=== PATIENT | female | born 1945 | race Caucasian/White ===

== ENCOUNTER → 2016-04-08 | Outpatient (REF) | payer MEDICARE, OTHER ==
[2016-04-10 00:06] LABS: Lyme Disease IgG Ab 18 kDa Ban Absent (.); Lyme Disease IgG Ab 23 kDa Ban Absent (.); Lyme Disease IgG Ab 28 kDa Ban Absent (.); Lyme Disease IgG Ab 30 kDa Ban Absent (.); Lyme Disease IgG Ab 39 kDa Ban Absent (.); Lyme Disease IgG Ab 41 kDa Ban Present (.); Lyme Disease IgG Ab 45 kDa Ban Present (.); Lyme Disease IgG Ab 58 kDa Ban Absent (.); Lyme Disease IgG Ab 66 kDa Ban Absent (.); Lyme Disease IgG Ab 93 kDa Ban Absent (.); Lyme Disease IgG West Blot Int Negative (.); Lyme Disease IgG/IgM Antibodie <0.91 ISR (0.00-0.90); Lyme Disease IgM Ab 23 kDa Ban Absent (.); Lyme Disease IgM Ab 39 kDa Ban Absent (.); Lyme Disease IgM Ab 41 kDa Ban Absent (.); Lyme Disease IgM Ab Quantitati 1.47 index (0.00-0.79); Lyme Disease IgM West Blot Int Negative (.)
== END ==
LOC: M LAB REF 12:27
PROVIDERS: ATTEND Nurse Practitioner Adult Health
DX: S80.869A Insect bite (nonvenomous), unspecified lower leg, initial encounter (principal); X58.XXXA Exposure to other specified factors, initial encounter; Y92.89 Other specified places as the place of occurrence of the external cause; Y93.89 Activity, other specified; Y99.8 Other external cause status; Z01.89 Encounter for other specified special examinations

== ENCOUNTER 2016-04-11 12:17 | Emergency (ER) | payer MEDICARE, BC ==
[2016-04-11] MEDS ORDERED: diazePAM 2 MG TAB As Ordered ONE (13:37)
[2016-04-11] MEDS ORDERED: NORCO, ANEXSIA 5/325MG TABLET (HYDROcodone/ACETAMINOPHEN) As Ordered ONE (13:37)
--- NOTE | 2016-04-11 14:05 | REP ---
Clinical: Trauma. Fall. Technique: AP and lateral views of the right humerus. Findings: There is evidence for anteroinferior glenohumeral joint dislocation. The humerus is otherwise intact without acute fracture. Impression: Anteroinferior glenohumeral joint dislocation. No acute fracture. Signed by Yung Gutiérrez MD 04/11/2016 01:56 P
--- NOTE | 2016-04-11 14:06 | REP ---
Clinical: Trauma. Fall. Technique: Internal rotation, external rotation, and Y view of the right shoulder. Findings: Acute anteroinferior glenohumeral joint dislocation is appreciated without evidence for fracture. Age related osteopenia and degenerative changes include spurring along the inferior margin of the acromioclavicular joint and blunting to the glenoid rim. Impression: Acute anteroinferior glenohumeral joint dislocation. Degenerative changes with inferior osteophyte at the acromioclavicular joint. Signed by Yung Gutiérrez MD 04/11/2016 01:58 P
--- NOTE | 2016-04-11 14:08 | REP ---
Clinical: Pain. Technique: AP, lateral, flexion/extension, open-mouth, and bilateral oblique views. Findings: Advanced degenerative disc osteophyte complexes at the C5-6 level and to a lesser extent the a C4-5 and C6-7 levels including osteophytosis, endplate sclerosis, disc space narrowing and hypertrophic facet changes. No acute fracture / compression injury or subluxation. Spinous processes are intact. Prevertebral soft tissues are normal. Impression: Moderate to advanced multilevel degenerative changes. Signed by Yung Gutiérrez MD 04/11/2016 02:00 P
[2016-04-11] MEDS ORDERED: KETAMINE HCL 200 MG/20 ML VIAL As Ordered ONE (14:25)
[2016-04-11] MEDS ORDERED: PROPOFOL 200 MG/20 ML VIAL As Ordered ONE (14:25)
--- NOTE | 2016-04-11 15:28 | REP ---
Clinical: Status post reduction. Technique: Single portable neutral view of the right shoulder. Findings: Satisfactory reduction to the glenohumeral joint is appreciated. A Shiley osteopenia and degenerative changes appreciated. No obvious acute fracture identified. Impression: Satisfactory reduction suggested. Underlying degenerative changes noted. Signed by Yung Gutiérrez MD 04/11/2016 03:20 P
--- NOTE | 2016-04-11 17:41 | EDDOCDS ---
Physician Documentation [facility], [place] Name: Jenny Mora Age: 70 yrs Sex: Female : 1945 Arrival Date: 04/11/2016 Time: 12:17 Bed 4 Private MD: Radha Draper Disposition: 04/11/16 16:35 Discharged to Home/Self Care. Impression: Other dislocation of right shoulder joint, Elevated blood-pressure reading, without diagnosis of hypertension. - Condition is Stable. - Discharge Instructions: Shoulder Dislocation, Sling Use After Injury or Surgery, [id number], Hypertension, How to Take Your Blood Pressure, [id number], Cryotherapy. - Prescriptions for [place] 5- 325 mg Oral Tablet - take 1 tablet by ORAL route every 6 hours As needed MDD: 4 tabs; 6 tablet. - Medication Reconciliation, Local Pharmacy Hours form. - Follow up: [facility]; When: 1 week; Reason: Recheck today's complaints, Continuance of care. Follow up: Radha Draper; When: Call to arrange an appointment; Reason: Recheck today's complaints. - Problem is new. - Symptoms are resolved. Historical: - Allergies: PENICILLINS; - Home Meds: 1. Systane 0.4-0.3 % ophthalmic drop as needed 2. Vitamin D Oral Unknown weekly - PMHx: Glaucoma; - PSHx: Hysteroscopy; - Social history: Smoking status: Patient states was never smoker of tobacco. No barriers to communication noted, The patient speaks fluent Latvian. - Family history: Not pertinent, No immediate family members are acutely ill. - : The pt / caregiver states he / she is not on anticoagulants. Home medication list is obtained from the patient. - Exposure Risk Screening:: None identified. Vital Signs: 04/11 12:19 BP 212 / 111; Pulse 69; Resp 18 S; Temp 97.1; Pulse Ox 100% on R/A; Weight 70.31 kg / dd6 155.01 lbs (R); Height 5 ft. 5 in. (165.10 cm) (R); 14:24 BP 218 / 95 (auto/); hs1 14:24 Pulse 76 MON; Pulse Ox 98% ; hs1 14:25 BP 205 / 94 (auto/); hs1 14:26 Pulse 78 MON; Pulse Ox 96% ; hs1 14:40 BP 186 / 70 (auto/); hs1 14:40 Pulse 70 MON; Pulse Ox 98% ; hs1 14:46 BP 202 / 90 (auto/); hs1 14:46 Pulse 78 MON; Pulse Ox 98% ; hs1 14:51 BP 228 / 106 (auto/); hs1 14:51 Pulse 82 MON; Pulse Ox 100% ; hs1 14:55 BP 222 / 95 (auto/); hs1 14:55 Pulse 98 MON; Pulse Ox 100% ; hs1 15:10 BP 187 / 84 (auto/); hs1 15:10 Pulse 86 MON; Pulse Ox 99% ; hs1 15:25 BP 181 / 83 (auto/); hs1 15:25 Pulse 82 MON; Pulse Ox 97% ; hs1 15:54 Pulse 76 MON; Pulse Ox 95% ; hs1 15:55 BP 170 / 95 (auto/); hs1 16:09 Pulse 78 MON; Pulse Ox 96% ; hs1 16:10 BP 161 / 75 (auto/); hs1 17:40 BP 155 / 66; Pulse 76; Resp 18; Temp 98.2; Pulse Ox 95% ; Pain 0/10; hs1 12:19 Body Mass Index 25.79 (70.31 kg, 165.10 cm) dd6 MDM: 13:27 Diazepam 2 mg PO once ordered. le 13:27 HYDROcodone-acetaminophen 5 mg-325 mg 1 tabs PO once ordered. le 13:28 Spine, Cervical Ordered. EDMS 13:28 Shoulder, Complete Ordered. EDMS 13:28 Humerus Ordered. EDMS 14:11 Ketamine (1mg/kg - Peds initial dose) 70 mg IVP once ordered. le 14:11 Propofol (PF)(Moderate Sedation, 0.5mg/kg) 35 mg IVP Per protocol; give every 1-2 le minutes until desired level of sedation ordered. 14:11 Call Respiratory ordered. le 14:11 Airway Cart to bedside ordered. le 14:[address]ler Engineer and SaO2 with q 5 minute VS during procedure ordered. le 14:11 Initiate continuous wave form capnography monitoring ordered. le 14:11 Oxygen at 4L/Min NC or Home dosage ordered. le 14:45 Call Respiratory complete. deg 14:53 Sling ordered. le 14:54 Shoulder (1 View) Ordered. EDMS 15:14 Propofol (PF)(Moderate Sedation, 0.5mg/kg) 35 mg IVP Per protocol; give every 1-2 le minutes until desired level of sedation ordered. 16:23 Financial registration complete. zo 16:24 Fluid Challenge ordered. le 16:24 Ambulate Patient to Assess Patient Safety ordered. le 16:24 [facility] Payment Agreement was scanned into [facility] and attached to record. zo Administered Medications: 13:38 Drug: Diazepam 2 mg [diazepam 2 mg tablet (1 tabs)] Route: PO; hs1 13:38 Drug: HYDROcodone-acetaminophen 1 tabs [hydrocodone 5 mg-acetaminophen 325 mg tablet (1 hs1 tabs)] Route: PO; 14:47 Drug: Ketamine (1mg/kg - Peds initial dose) 70 mg [ketamine 10 mg/mL injection solution hs1 (7 mL)] Route: IVP; Site: left hand; 15:14 Not Given (Ketamine effective alonee): Propofol (PF)(Moderate Sedation, 0.5mg/kg) 35 mg le IVP Per protocol; give every 1-2 minutes until desired level of sedation Signatures: Dispatcher [employer] EDMS Madeline Benitez, Product Promoter Sales Person Unit deg Vitor, Yvrose zo Leslie Farrar, ORDER SCHEDULE CLERK ORDER SCHEDULE CLERK Daniela Christina RN RN hs1 Christie Hernandes RN RN ms18 The chart was reviewed and I authenticate all verbal orders and agree with the evaluation and treatment provided.Attachments: 16:24 [facility] Payment Agreement zo MTDD
--- NOTE | 2016-04-11 17:41 | EDDOCDS ---
Nurse's Notes [facility] Name: Jenny Mora Age: 70 yrs Sex: Female : 1945 Arrival Date: 04/11/2016 Time: 12:17 Bed 4 Private MD: Radha Draper Diagnosis: Other dislocation of right shoulder joint;Elevated blood-pressure reading, without diagnosis of hypertension Presentation: 04/11 12:21 Presenting complaint: Patient states: that while she was hiking with her dog, she fell ms18 and injured her R arm. Adult Sepsis Screening: The patient does not have new or worsening altered mentation. Patient's respiratory rate is less than 22. Systolic blood pressure is greater than 100. Patient has a qSOFA score of 0- Negative Sepsis Screen. Suicide/Homicide risk assessment- the patient denies having any suicidal and/or homicidal ideations and does not present with any other emotional, behavioral or mental health complaints. Status: Patient is not a service car operator or dependent. Transition of care: patient was not received from another setting of care. 12:21 Acuity: LELA Level 4 ms18 12:21 Method Of Arrival: Walkin/Carried/Asstd ms18 Triage Assessment: 12:25 General: Appears in no apparent distress, comfortable, Behavior is appropriate for age, ms18 cooperative. Pain: Location: right arm and neck Pain currently is 5 out of 10 on a pain scale. Neurological: Level of Consciousness is awake, alert, obeys commands, Oriented to person, place, time. Respiratory: No deficits noted. Derm: Skin is pink, warm & dry. Musculoskeletal: cervical spine is non-tender. Range of motion limited in right shoulder No deformity noted. Historical: - Allergies: PENICILLINS; - Home Meds: 1. Systane 0.4-0.3 % ophthalmic drop as needed 2. Vitamin D Oral Unknown weekly - PMHx: Glaucoma; - PSHx: Hysteroscopy; - Social history: Smoking status: Patient states was never smoker of tobacco. No barriers to communication noted, The patient speaks fluent Japanese. - Family history: Not pertinent, No immediate family members are acutely ill. - : The pt / caregiver states he / she is not on anticoagulants. Home medication list is obtained from the patient. - Exposure Risk Screening:: None identified. Screenin:44 Screening information is obtained from the patient. Fall risk: No risks identified. hs1 Assistance ADL's: requires no assistance with activities of daily living. Abuse/DV Screen: The patient / caregiver reports he/she is: not in a situation that causes fear, pain or injury. Nutritional screening: No deficits noted. Advance Directives: There is no active DNR order. home support is adequate. Assessment: 13:38 General: Appears uncomfortable, Behavior is appropriate for age, cooperative. Pain: hs1 Location: anterior aspect of right shoulder Pain currently is 9 out of 10 on a pain scale. Neurological: No deficits noted. Respiratory: No deficits noted. GI: No deficits noted. Musculoskeletal: Range of motion limited in right shoulder Reports numbness in right arm pain in anterior aspect of right shoulder radiation to right elbow. 14:25 General: Pt aware of having a dislocated shoulder and that she need to have PHOTONICS ENGINEERING TECHNOLOGIST put back hs1 in. See moderated sedation chart for further. . 15:00 General: Patient talking and upright with Right shoulder in sling at present. Xray hs1 obtained and confirmation of joint in place made by PHOTONICS ENGINEERING TECHNOLOGIST. brought back in to patient and he was explained details of the moderate sedation and that patients respiratory system needed assistance due to her tolerance of the medication. Patient alert and oriented and obeys all commands. . 16:25 General: Appears in no apparent distress, comfortable, Pt resting has used commode hs1 multiple times and is tolerating drinking. Patient ambulates without assistance. No needs noted. SO continues at bedside. . 17:36 General: Appears in no apparent distress, comfortable, Behavior is appropriate for age, hs1 cooperative. Pain: Denies pain. Neurological: Oriented to person, place, time, Coremaker Machine are equal bilaterally. Cardiovascular: No deficits noted. Respiratory: No deficits noted. GI: No deficits noted. Derm: Skin is pink, warm & dry. normal. Vital Signs: 12:19 BP 212 / 111; Pulse 69; Resp 18 S; Temp 97.1; Pulse Ox 100% on R/A; Weight 70.31 kg dd6 (R); Height 5 ft. 5 in. (165.10 cm) (R); 14:24 BP 218 / 95 (auto/); hs1 14:24 Pulse 76 MON; Pulse Ox 98% ; hs1 14:25 BP 205 / 94 (auto/); hs1 14:26 Pulse 78 MON; Pulse Ox 96% ; hs1 14:40 BP 186 / 70 (auto/); hs1 14:40 Pulse 70 MON; Pulse Ox 98% ; hs1 14:46 BP 202 / 90 (auto/); hs1 14:46 Pulse 78 MON; Pulse Ox 98% ; hs1 14:51 BP 228 / 106 (auto/); hs1 14:51 Pulse 82 MON; Pulse Ox 100% ; hs1 14:55 BP 222 / 95 (auto/); hs1 14:55 Pulse 98 MON; Pulse Ox 100% ; hs1 15:10 BP 187 / 84 (auto/); hs1 15:10 Pulse 86 MON; Pulse Ox 99% ; hs1 15:25 BP 181 / 83 (auto/); hs1 15:25 Pulse 82 MON; Pulse Ox 97% ; hs1 15:54 Pulse 76 MON; Pulse Ox 95% ; hs1 15:55 BP 170 / 95 (auto/); hs1 16:09 Pulse 78 MON; Pulse Ox 96% ; hs1 16:10 BP 161 / 75 (auto/); hs1 17:40 BP 155 / 66; Pulse 76; Resp 18; Temp 98.2; Pulse Ox 95% ; Pain 0/10; hs1 12:19 Body Mass Index 25.79 (70.31 kg, 165.10 cm) dd6 Vitals: 12:19 Log In Time: April 11, 2016 at 12:17. dd6 ED Course: 12:18 Patient visited by Fran Condon PCA. dd6 12:18 Patient moved to Waiting dd6 12:19 Radha Draper is Private Physician. dd6 12:20 Patient moved to Pre RCE dd6 12:22 Triage Initiated ms18 12:35 [facility]. le 12:35 Patient moved to 13 mlb1 12:47 Patient visited by Leslie Farrar FNP. le 12:47 Patient visited by Leslie Farrar FNP. le 13:28 Patient visited by Daniela Gonzalez, ADALID. hs1 14:07 Daniela Gonzalez, ADALID is Primary Nurse. dy 14:07 Patient moved to 4 dy 14:23 Humerus Returned. EDMS 14:23 Shoulder, Complete Returned. EDMS 14:23 Spine, Cervical Returned. EDMS 14:40 Inserted saline lock: 20 gauge in left hand The patient tolerated the procedure well. hs1 14:45 Patient visited by Daniela Gonzalez RN. hs1 14:45 Assist provider with reduction of right shoulder using manipulation, Set up for hs1 procedure. Performed by Leslie Farrar RESTAURANT AREA DIRECTOR Immobilized with sling, Patient tolerated well. 15:43 Patient visited by Daniela Gonzalez RN. hs1 15:45 The patient / caregiver is instructed regarding the plan of care and ED course. hs1 15:53 Shoulder (1 View) Returned. EDMS 16:14 Patient visited by Daniela Gonzalez RN. hs1 16:24 [facility] Payment Agreement was scanned into [employer] and attached to record. zo 16:35 [facility] is Referral Physician. neelima 16:36 Radha Draper is Referral Physician. neelima Anne Sedation: 14:45 Pre-procedure: Name of procedure: Right Shoulder reduction Monitoring RN: Daniela hs1 Lisa CORDOBA Other Staff: Kika Farrar NP, Orin Lloyd RN, Stephanie Mcghee INTERVENTION NURSE Reviewed instructions and expectations with patient, patient's , Has had drug/anesthesia reactions to patient states na ve Reviewed patient's current meds list. monitoring tech on. Cardiac rhythm with PVC's Pulse ox on. Oxygen via nasal cannula \T\ 2L/min 14:45 Q 5 minute assessment Level of Consciousness: Alert / Oriented 14:45 See Trend VS 14:50 Q 5 minute assessment Level of Consciousness: Drowsy hs1 14:50 Intra-procedure: Procedure began at 14:52 Patient response: remains sedated, resps even/unlabored, IV patent. 14:55 Q 5 minute assessment Level of Consciousness: Respirations needing assistance. Pt hs1 bagged with 100% O2 by MARIA ANTONIA Mcghee at this time under direction of Kika Miller NP 14:55 Post-procedure: Procedure ended at 14:55 the total procedure time was less than 30 minutes. Administered Medications: 13:38 Drug: Diazepam 2 mg [diazepam 2 mg tablet (1 tabs)] Route: PO; hs1 13:38 Drug: HYDROcodone-acetaminophen 1 tabs [hydrocodone 5 mg-acetaminophen 325 mg tablet (1 hs1 tabs)] Route: PO; 14:47 Drug: Ketamine (1mg/kg - Peds initial dose) 70 mg [ketamine 10 mg/mL injection solution hs1 (7 mL)] Route: IVP; Site: left hand; 15:14 Not Given (Ketamine effective alonee): Propofol (PF)(Moderate Sedation, 0.5mg/kg) 35 mg le IVP Per protocol; give every 1-2 minutes until desired level of sedation RT: 14:55 Assist ventilation with Ambu bag. jh6 14:55 Respiratory: Airway is patent Respiratory effort is apnea. jh6 15:02 Respiratory: Airway is patent Respiratory effort is even, unlabored, Respiratory jh6 pattern is regular symmetrical. 15:05 Respiratory: Breath sounds are clear bilaterally. in right upper lobe, left upper lobe, jh6 right middle lobe, left lower lobe and right lower lobe. Order Results: Radiology Order: Spine, Cervical Test: Spine, Cervical REASON FOR EXAMINATION: PAIN; Clinical: Pain.; ; Technique: AP, lateral, flexion/extension, open-mouth, and bilateral oblique; views.; ; Findings:; Advanced degenerative disc osteophyte complexes at the C5-6 level and to a lesser; extent the a C4-5 and C6-7 levels including osteophytosis, endplate sclerosis,; disc space narrowing and hypertrophic facet changes. No acute fracture /; compression injury or subluxation. Spinous processes are intact. Prevertebral; soft tissues are normal.; ; Impression:; Moderate to advanced multilevel degenerative changes.; ; ; Signed by; Yung Gutiérrez MD 04/11/2016 02:00 P; Radiology Order: Shoulder, Complete Test: Shoulder, Complete REASON FOR EXAMINATION: FALL; Clinical: Trauma. Fall.; ; Technique: Internal rotation, external rotation, and Y view of the right; shoulder.; ; Findings:; Acute anteroinferior glenohumeral joint dislocation is appreciated without; evidence for fracture. Age related osteopenia and degenerative changes include; spurring along the inferior margin of the acromioclavicular joint and blunting to; the glenoid rim.; ; Impression:; Acute anteroinferior glenohumeral joint dislocation.; Degenerative changes with inferior osteophyte at the acromioclavicular joint.; ; ; Signed by; Yung Gutiérrez MD 04/11/2016 01:58 P; Radiology Order: Humerus Test: Humerus REASON FOR EXAMINATION: FALL; Clinical: Trauma. Fall.; ; Technique: AP and lateral views of the right humerus.; ; Findings:; There is evidence for anteroinferior glenohumeral joint dislocation. The humerus; is otherwise intact without acute fracture.; ; Impression:; Anteroinferior glenohumeral joint dislocation.; No acute fracture.; ; ; Signed by; Yung Gutiérrez MD 04/11/2016 01:56 P; Radiology Order: Shoulder (1 View) Test: Shoulder (1 View) REASON FOR EXAMINATION: post-reduction; Clinical: Status post reduction.; ; Technique: Single portable neutral view of the right shoulder.; ; Findings:; Satisfactory reduction to the glenohumeral joint is appreciated. A Shiley; osteopenia and degenerative changes appreciated. No obvious acute fracture; identified.; ; Impression:; Satisfactory reduction suggested.; Underlying degenerative changes noted.; ; ; Signed by; Yung Gutiérrez MD 04/11/2016 03:20 P; Outcome: 15:45 Discharge Assessment: patient administered narcotics - yes. Pt provided with safe hs1 discharge. 16:35 Discharge ordered by Provider. le 17:37 The following High Risk Discharge criteria are identified: None. Discharged to home hs1 ambulatory, with significant other. Condition: stable Condition: improved. Discharge instructions given to patient, significant other, Instructed on discharge instructions, follow up and referral plans. medication usage, Demonstrated understanding of instructions, medications, Pt was receptive of discharge instructions/ teaching. Prescriptions given X 1. No special radiology studies were completed. Property sent home with patient. 17:40 Patient left the ED. hs1 Signatures: Dispatcher [employer] EDAmauri Boyle RN Jose Manuel Gutierrez RN RN mlb1 Yvrose Adler Lisa, RESTAURANT AREA DIRECTOR RESTAURANT AREA DIRECTOR Fran Zhang, INSPECTOR COLD WORKING INSPECTOR COLD WORKING dd6 Daniela Gonzalez RN RN hs1 Paul Mcghee 6 Christie Hernandes,ADALID RN ms18 MTDD
--- NOTE | 2016-04-13 18:41 | EDDOCDS ---
Nurse's Notes [facility] Name: Jenny Mora Age: 70 yrs Sex: Female : 1945 Arrival Date: 04/11/2016 Time: 12:17 Bed 4 Private MD: Radha Draper Diagnosis: Other dislocation of right shoulder joint;Elevated blood-pressure reading, without diagnosis of hypertension Presentation: 04/11 12:21 Presenting complaint: Patient states: that while she was hiking with her dog, she fell ms18 and injured her R arm. Adult Sepsis Screening: The patient does not have new or worsening altered mentation. Patient's respiratory rate is less than 22. Systolic blood pressure is greater than 100. Patient has a qSOFA score of 0- Negative Sepsis Screen. Suicide/Homicide risk assessment- the patient denies having any suicidal and/or homicidal ideations and does not present with any other emotional, behavioral or mental health complaints. Status: Patient is not a supervisor public message service or dependent. Transition of care: patient was not received from another setting of care. 12:21 Acuity: LELA Level 4 ms18 12:21 Method Of Arrival: Walkin/Carried/Asstd ms18 Triage Assessment: 12:25 General: Appears in no apparent distress, comfortable, Behavior is appropriate for age, ms18 cooperative. Pain: Location: right arm and neck Pain currently is 5 out of 10 on a pain scale. Neurological: Level of Consciousness is awake, alert, obeys commands, Oriented to person, place, time. Respiratory: No deficits noted. Derm: Skin is pink, warm & dry. Musculoskeletal: cervical spine is non-tender. Range of motion limited in right shoulder No deformity noted. Historical: - Allergies: PENICILLINS; - Home Meds: 1. Systane 0.4-0.3 % ophthalmic drop as needed 2. Vitamin D Oral Unknown weekly - PMHx: Glaucoma; - PSHx: Hysteroscopy; - Social history: Smoking status: Patient states was never smoker of tobacco. No barriers to communication noted, The patient speaks fluent Kyrgyz. - Family history: Not pertinent, No immediate family members are acutely ill. - : The pt / caregiver states he / she is not on anticoagulants. Home medication list is obtained from the patient. - Exposure Risk Screening:: None identified. Screenin:44 Screening information is obtained from the patient. Fall risk: No risks identified. hs1 Assistance ADL's: requires no assistance with activities of daily living. Abuse/DV Screen: The patient / caregiver reports he/she is: not in a situation that causes fear, pain or injury. Nutritional screening: No deficits noted. Advance Directives: There is no active DNR order. home support is adequate. Assessment: 13:38 General: Appears uncomfortable, Behavior is appropriate for age, cooperative. Pain: hs1 Location: anterior aspect of right shoulder Pain currently is 9 out of 10 on a pain scale. Neurological: No deficits noted. Respiratory: No deficits noted. GI: No deficits noted. Musculoskeletal: Range of motion limited in right shoulder Reports numbness in right arm pain in anterior aspect of right shoulder radiation to right elbow. 14:25 General: Pt aware of having a dislocated shoulder and that she need to have ADVERTISING REP put back hs1 in. See moderated sedation chart for further. . 15:00 General: Patient talking and upright with Right shoulder in sling at present. Xray hs1 obtained and confirmation of joint in place made by ADVERTISING REP. brought back in to patient and he was explained details of the moderate sedation and that patients respiratory system needed assistance due to her tolerance of the medication. Patient alert and oriented and obeys all commands. . 16:25 General: Appears in no apparent distress, comfortable, Pt resting has used commode hs1 multiple times and is tolerating drinking. Patient ambulates without assistance. No needs noted. SO continues at bedside. . 17:36 General: Appears in no apparent distress, comfortable, Behavior is appropriate for age, hs1 cooperative. Pain: Denies pain. Neurological: Oriented to person, place, time, It Network Engineer are equal bilaterally. Cardiovascular: No deficits noted. Respiratory: No deficits noted. GI: No deficits noted. Derm: Skin is pink, warm & dry. normal. Vital Signs: 12:19 BP 212 / 111; Pulse 69; Resp 18 S; Temp 97.1; Pulse Ox 100% on R/A; Weight 70.31 kg dd6 (R); Height 5 ft. 5 in. (165.10 cm) (R); 14:24 BP 218 / 95 (auto/); hs1 14:24 Pulse 76 MON; Pulse Ox 98% ; hs1 14:25 BP 205 / 94 (auto/); hs1 14:26 Pulse 78 MON; Pulse Ox 96% ; hs1 14:40 BP 186 / 70 (auto/); hs1 14:40 Pulse 70 MON; Pulse Ox 98% ; hs1 14:46 BP 202 / 90 (auto/); hs1 14:46 Pulse 78 MON; Pulse Ox 98% ; hs1 14:51 BP 228 / 106 (auto/); hs1 14:51 Pulse 82 MON; Pulse Ox 100% ; hs1 14:55 BP 222 / 95 (auto/); hs1 14:55 Pulse 98 MON; Pulse Ox 100% ; hs1 15:10 BP 187 / 84 (auto/); hs1 15:10 Pulse 86 MON; Pulse Ox 99% ; hs1 15:25 BP 181 / 83 (auto/); hs1 15:25 Pulse 82 MON; Pulse Ox 97% ; hs1 15:54 Pulse 76 MON; Pulse Ox 95% ; hs1 15:55 BP 170 / 95 (auto/); hs1 16:09 Pulse 78 MON; Pulse Ox 96% ; hs1 16:10 BP 161 / 75 (auto/); hs1 17:40 BP 155 / 66; Pulse 76; Resp 18; Temp 98.2; Pulse Ox 95% ; Pain 0/10; hs1 12:19 Body Mass Index 25.79 (70.31 kg, 165.10 cm) dd6 Vitals: 12:19 Log In Time: April 11, 2016 at 12:17. dd6 ED Course: 12:18 Patient visited by Fran Condon PCA. dd6 12:18 Patient moved to Waiting dd6 12:19 Radha Draper is Private Physician. dd6 12:20 Patient moved to Pre RCE dd6 12:22 Triage Initiated ms18 12:35 [facility] le 12:35 Patient moved to 13 mlb1 12:47 Patient visited by Leslie Farrar FNP. le 12:47 Patient visited by Leslie Farrar FNP. le 13:28 Patient visited by Daniela Gonzalez, ADALID. hs1 14:07 Daniela Gonzalez, ADALID is Primary Nurse. dy 14:07 Patient moved to 4 dy 14:23 Humerus Returned. EDMS 14:23 Shoulder, Complete Returned. EDMS 14:23 Spine, Cervical Returned. EDMS 14:40 Inserted saline lock: 20 gauge in left hand The patient tolerated the procedure well. hs1 14:45 Patient visited by Daniela Gonzalez RN. hs1 14:45 Assist provider with reduction of right shoulder using manipulation, Set up for hs1 procedure. Performed by Leslie Farrar INFRASTRUCTURE MANAGER Immobilized with sling, Patient tolerated well. 15:43 Patient visited by Daniela Gonzalez RN. hs1 15:45 The patient / caregiver is instructed regarding the plan of care and ED course. hs1 15:53 Shoulder (1 View) Returned. EDMS 16:14 Patient visited by Daniela Gonzalez RN. hs1 16:24 [facility] Payment Agreement was scanned into [employer] and attached to record. zo 16:35 [facility] is Referral Physician. le 16:36 Radha Draper is Referral Physician. le 21:16 T-Sheet-- Draft Copy was scanned into [employer] and attached to record. klr 04/13 08:31 [place] Protocol was scanned into [employer] and attached to record. gb 08:31 Consents was scanned into [employer] and attached to record. kenna Anne Sedation: 04/11 14:45 Pre-procedure: Name of procedure: Right Shoulder reduction Monitoring RN: Daniela Gonzalez RN Other Staff: Kika Farrar NP, Orin Lloyd RN, Stephanie Mcghee MOBILE UI DEVELOPER Reviewed instructions and expectations with patient, patient's , Has had drug/anesthesia reactions to patient states na ve Reviewed patient's current meds list. youth nutritional monitor on. Cardiac rhythm with PVC's Pulse ox on. Oxygen via nasal cannula \T\ 2L/min Q 5 minute assessment Level of Consciousness: Alert / Oriented See Trend VS 14:50 Q 5 minute assessment Level of Consciousness: Drowsy hs1 14:50 Intra-procedure: Procedure began at 14:52 Patient response: remains sedated, resps even/unlabored, IV patent. 14:55 Q 5 minute assessment Level of Consciousness: Respirations needing assistance. Pt hs1 bagged with 100% O2 by MARIA ANTONIA Mcghee at this time under direction of Kika Miller NP 14:55 Post-procedure: Procedure ended at 14:55 the total procedure time was less than 30 minutes. Administered Medications: 13:38 Drug: Diazepam 2 mg [diazepam 2 mg tablet (1 tabs)] Route: PO; hs1 13:38 Drug: HYDROcodone-acetaminophen 1 tabs [hydrocodone 5 mg-acetaminophen 325 mg tablet (1 hs1 tabs)] Route: PO; 14:47 Drug: Ketamine (1mg/kg - Peds initial dose) 70 mg [ketamine 10 mg/mL injection solution hs1 (7 mL)] Route: IVP; Site: left hand; 15:14 Not Given (Ketamine effective alonee): Propofol (PF)(Moderate Sedation, 0.5mg/kg) 35 mg le IVP Per protocol; give every 1-2 minutes until desired level of sedation Attachments: 04/13 08:31 Atkinson Protocol gb 08:31 Consents gb RT: 04/11 14:55 Assist ventilation with Ambu bag. jh6 14:55 Respiratory: Airway is patent Respiratory effort is apnea. jh6 15:02 Respiratory: Airway is patent Respiratory effort is even, unlabored, Respiratory jh6 pattern is regular symmetrical. 15:05 Respiratory: Breath sounds are clear bilaterally. in right upper lobe, left upper lobe, jh6 right middle lobe, left lower lobe and right lower lobe. Order Results: Radiology Order: Spine, Cervical Test: Spine, Cervical REASON FOR EXAMINATION: PAIN; Clinical: Pain.; ; Technique: AP, lateral, flexion/extension, open-mouth, and bilateral oblique; views.; ; Findings:; Advanced degenerative disc osteophyte complexes at the C5-6 level and to a lesser; extent the a C4-5 and C6-7 levels including osteophytosis, endplate sclerosis,; disc space narrowing and hypertrophic facet changes. No acute fracture /; compression injury or subluxation. Spinous processes are intact. Prevertebral; soft tissues are normal.; ; Impression:; Moderate to advanced multilevel degenerative changes.; ; ; Signed by; Yung Gutiérrez MD 04/11/2016 02:00 P; Radiology Order: Shoulder, Complete Test: Shoulder, Complete REASON FOR EXAMINATION: FALL; Clinical: Trauma. Fall.; ; Technique: Internal rotation, external rotation, and Y view of the right; shoulder.; ; Findings:; Acute anteroinferior glenohumeral joint dislocation is appreciated without; evidence for fracture. Age related osteopenia and degenerative changes include; spurring along the inferior margin of the acromioclavicular joint and blunting to; the glenoid rim.; ; Impression:; Acute anteroinferior glenohumeral joint dislocation.; Degenerative changes with inferior osteophyte at the acromioclavicular joint.; ; ; Signed by; Yung Gutiérrez MD 04/11/2016 01:58 P; Radiology Order: Humerus Test: Humerus REASON FOR EXAMINATION: FALL; Clinical: Trauma. Fall.; ; Technique: AP and lateral views of the right humerus.; ; Findings:; There is evidence for anteroinferior glenohumeral joint dislocation. The humerus; is otherwise intact without acute fracture.; ; Impression:; Anteroinferior glenohumeral joint dislocation.; No acute fracture.; ; ; Signed by; Yung Gutiérrez MD 04/11/2016 01:56 P; Radiology Order: Shoulder (1 View) Test: Shoulder (1 View) REASON FOR EXAMINATION: post-reduction; Clinical: Status post reduction.; ; Technique: Single portable neutral view of the right shoulder.; ; Findings:; Satisfactory reduction to the glenohumeral joint is appreciated. A Shiley; osteopenia and degenerative changes appreciated. No obvious acute fracture; identified.; ; Impression:; Satisfactory reduction suggested.; Underlying degenerative changes noted.; ; ; Signed by; Yung Gutiérrez MD 04/11/2016 03:20 P; Outcome: 15:45 Discharge Assessment: patient administered narcotics - yes. Pt provided with safe hs1 discharge. 16:35 Discharge ordered by Provider. le 17:37 The following High Risk Discharge criteria are identified: None. Discharged to home hs1 ambulatory, with significant other. Condition: stable Condition: improved. Discharge instructions given to patient, significant other, Instructed on discharge instructions, follow up and referral plans. medication usage, Demonstrated understanding of instructions, medications, Pt was receptive of discharge instructions/ teaching. Prescriptions given X 1. No special radiology studies were completed. Property sent home with patient. 17:40 Patient left the ED. hs1 Signatures: Dispatcher [employer] EDMS Teressa Boateng, Reg Reg Amauri Pena, RN RN Jose Manuel Castrejon RN RN mlb1 Yvrose Adler Lisa, INFRASTRUCTURE MANAGER INFRASTRUCTURE MANAGER Fran Zhang, VAULT CLERK VAULT CLERK dd6 Daniela Gonzalez RN RN hs1 Paul Mcghee jh6 Christie Hernandes,ADALID RN ms18 Chanell Machado Chart Complete MTDD
--- NOTE | 2016-04-13 18:41 | EDDOCDS ---
Physician Documentation [facility] Name: Jenny Mora Age: 70 yrs Sex: Female : 1945 Arrival Date: 04/11/2016 Time: 12:17 Bed 4 Private MD: Radha Draper Disposition: 04/11/16 16:35 Discharged to Home/Self Care. Impression: Other dislocation of right shoulder joint, Elevated blood-pressure reading, without diagnosis of hypertension. - Condition is Stable. - Discharge Instructions: Shoulder Dislocation, Sling Use After Injury or Surgery, [id number], Hypertension, How to Take Your Blood Pressure, Pwmj-[id number], Cryotherapy. - Prescriptions for [place] 5- 325 mg Oral Tablet - take 1 tablet by ORAL route every 6 hours As needed MDD: 4 tabs; 6 tablet. - Medication Reconciliation, Local Pharmacy Hours form. - Follow up: [facility]; When: 1 week; Reason: Recheck today's complaints, Continuance of care. Follow up: Radha Draper; When: Call to arrange an appointment; Reason: Recheck today's complaints. - Problem is new. - Symptoms are resolved. Historical: - Allergies: PENICILLINS; - Home Meds: 1. Systane 0.4-0.3 % ophthalmic drop as needed 2. Vitamin D Oral Unknown weekly - PMHx: Glaucoma; - PSHx: Hysteroscopy; - Social history: Smoking status: Patient states was never smoker of tobacco. No barriers to communication noted, The patient speaks fluent Kyrgyz. - Family history: Not pertinent, No immediate family members are acutely ill. - : The pt / caregiver states he / she is not on anticoagulants. Home medication list is obtained from the patient. - Exposure Risk Screening:: None identified. Vital Signs: 04/11 12:19 BP 212 / 111; Pulse 69; Resp 18 S; Temp 97.1; Pulse Ox 100% on R/A; Weight 70.31 kg / dd6 155.01 lbs (R); Height 5 ft. 5 in. (165.10 cm) (R); 14:24 BP 218 / 95 (auto/); hs1 14:24 Pulse 76 MON; Pulse Ox 98% ; hs1 14:25 BP 205 / 94 (auto/); hs1 14:26 Pulse 78 MON; Pulse Ox 96% ; hs1 14:40 BP 186 / 70 (auto/); hs1 14:40 Pulse 70 MON; Pulse Ox 98% ; hs1 14:46 BP 202 / 90 (auto/); hs1 14:46 Pulse 78 MON; Pulse Ox 98% ; hs1 14:51 BP 228 / 106 (auto/); hs1 14:51 Pulse 82 MON; Pulse Ox 100% ; hs1 14:55 BP 222 / 95 (auto/); hs1 14:55 Pulse 98 MON; Pulse Ox 100% ; hs1 15:10 BP 187 / 84 (auto/); hs1 15:10 Pulse 86 MON; Pulse Ox 99% ; hs1 15:25 BP 181 / 83 (auto/); hs1 15:25 Pulse 82 MON; Pulse Ox 97% ; hs1 15:54 Pulse 76 MON; Pulse Ox 95% ; hs1 15:55 BP 170 / 95 (auto/); hs1 16:09 Pulse 78 MON; Pulse Ox 96% ; hs1 16:10 BP 161 / 75 (auto/); hs1 17:40 BP 155 / 66; Pulse 76; Resp 18; Temp 98.2; Pulse Ox 95% ; Pain 0/10; hs1 12:19 Body Mass Index 25.79 (70.31 kg, 165.10 cm) dd6 MDM: 13:27 Diazepam 2 mg PO once ordered. le 13:27 HYDROcodone-acetaminophen 5 mg-325 mg 1 tabs PO once ordered. le 13:28 Spine, Cervical Ordered. EDMS 13:28 Shoulder, Complete Ordered. EDMS 13:28 Humerus Ordered. EDMS 14:11 Ketamine (1mg/kg - Peds initial dose) 70 mg IVP once ordered. le 14:11 Propofol (PF)(Moderate Sedation, 0.5mg/kg) 35 mg IVP Per protocol; give every 1-2 le minutes until desired level of sedation ordered. 14:11 Call Respiratory ordered. le 14:11 Airway Cart to bedside ordered. le 14:11 Continuous Tooth Clerk and SaO2 with q 5 minute VS during procedure ordered. le 14:11 Initiate continuous wave form capnography monitoring ordered. le 14:11 Oxygen at 4L/Min NC or Home dosage ordered. le 14:45 Call Respiratory complete. deg 14:53 Sling ordered. le 14:54 Shoulder (1 View) Ordered. EDMS 15:14 Propofol (PF)(Moderate Sedation, 0.5mg/kg) 35 mg IVP Per protocol; give every 1-2 le minutes until desired level of sedation ordered. 16:23 Financial registration complete. zo 16:24 Fluid Challenge ordered. le 16:24 Ambulate Patient to Assess Patient Safety ordered. le 16:24 [facility] [place] Agreement was scanned into [employer] and attached to record. zo 21:16 T-Sheet-- Draft Copy was scanned into [employer] and attached to record. klr 04/13 08:31 [place] Protocol was scanned into [employer] and attached to record. gb 08:31 Consents was scanned into [employer] and attached to record. gb Administered Medications: 04/11 13:38 Drug: Diazepam 2 mg [diazepam 2 mg tablet (1 tabs)] Route: PO; hs1 13:38 Drug: HYDROcodone-acetaminophen 1 tabs [hydrocodone 5 mg-acetaminophen 325 mg tablet (1 hs1 tabs)] Route: PO; 14:47 Drug: Ketamine (1mg/kg - Peds initial dose) 70 mg [ketamine 10 mg/mL injection solution hs1 (7 mL)] Route: IVP; Site: left hand; 15:14 Not Given (Ketamine effective alonee): Propofol (PF)(Moderate Sedation, 0.5mg/kg) 35 mg le IVP Per protocol; give every 1-2 minutes until desired level of sedation Signatures: Dispatcher [employer] EDMS Madeline Benitez, Roof Panel Hanger Unit deg Teressa Boateng, Reg Reg gb Vitor, Greereann zo Leslie Farrar, DEAN OF MEN DEAN OF MEN Daniela Christina RN RN hs1 Christie Hernandes RN RN ms18 Chanell Machado The chart was reviewed and I authenticate all verbal orders and agree with the evaluation and treatment provided.Attachments: 16:24 [facility] [place] Agreement zo 21:16 T-Sheet-- Draft Copy klr Chart Complete MTDD
--- NOTE | 2016-04-13 18:41 | EDDOCDS ---
Physician Documentation [facility] Name: Jenny Mora Age: 70 yrs Sex: Female : 1945 Arrival Date: 04/11/2016 Time: 12:17 Bed 4 Private MD: Radha Draper Disposition: 04/11/16 16:35 Discharged to Home/Self Care. Impression: Other dislocation of right shoulder joint, Elevated blood-pressure reading, without diagnosis of hypertension. - Condition is Stable. - Discharge Instructions: Shoulder Dislocation, Sling Use After Injury or Surgery, [id number], Hypertension, How to Take Your Blood Pressure, Eeyk-uc-Xtaz, Cryotherapy. - Prescriptions for [place] 5- 325 mg Oral Tablet - take 1 tablet by ORAL route every 6 hours As needed MDD: 4 tabs; 6 tablet. - Medication Reconciliation, Local Pharmacy Hours form. - Follow up: [facility]; When: 1 week; Reason: Recheck today's complaints, Continuance of care. Follow up: Radha Draper; When: Call to arrange an appointment; Reason: Recheck today's complaints. - Problem is new. - Symptoms are resolved. Historical: - Allergies: PENICILLINS; - Home Meds: 1. Systane 0.4-0.3 % ophthalmic drop as needed 2. Vitamin D Oral Unknown weekly - PMHx: Glaucoma; - PSHx: Hysteroscopy; - Social history: Smoking status: Patient states was never smoker of tobacco. No barriers to communication noted, The patient speaks fluent Korean. - Family history: Not pertinent, No immediate family members are acutely ill. - : The pt / caregiver states he / she is not on anticoagulants. Home medication list is obtained from the patient. - Exposure Risk Screening:: None identified. Vital Signs: 04/11 12:19 BP 212 / 111; Pulse 69; Resp 18 S; Temp 97.1; Pulse Ox 100% on R/A; Weight 70.31 kg / dd6 155.01 lbs (R); Height 5 ft. 5 in. (165.10 cm) (R); 14:24 BP 218 / 95 (auto/); hs1 14:24 Pulse 76 MON; Pulse Ox 98% ; hs1 14:25 BP 205 / 94 (auto/); hs1 14:26 Pulse 78 MON; Pulse Ox 96% ; hs1 14:40 BP 186 / 70 (auto/); hs1 14:40 Pulse 70 MON; Pulse Ox 98% ; hs1 14:46 BP 202 / 90 (auto/); hs1 14:46 Pulse 78 MON; Pulse Ox 98% ; hs1 14:51 BP 228 / 106 (auto/); hs1 14:51 Pulse 82 MON; Pulse Ox 100% ; hs1 14:55 BP 222 / 95 (auto/); hs1 14:55 Pulse 98 MON; Pulse Ox 100% ; hs1 15:10 BP 187 / 84 (auto/); hs1 15:10 Pulse 86 MON; Pulse Ox 99% ; hs1 15:25 BP 181 / 83 (auto/); hs1 15:25 Pulse 82 MON; Pulse Ox 97% ; hs1 15:54 Pulse 76 MON; Pulse Ox 95% ; hs1 15:55 BP 170 / 95 (auto/); hs1 16:09 Pulse 78 MON; Pulse Ox 96% ; hs1 16:10 BP 161 / 75 (auto/); hs1 17:40 BP 155 / 66; Pulse 76; Resp 18; Temp 98.2; Pulse Ox 95% ; Pain 0/10; hs1 12:19 Body Mass Index 25.79 (70.31 kg, 165.10 cm) dd6 MDM: 13:27 Diazepam 2 mg PO once ordered. le 13:27 HYDROcodone-acetaminophen 5 mg-325 mg 1 tabs PO once ordered. le 13:28 Spine, Cervical Ordered. EDMS 13:28 Shoulder, Complete Ordered. EDMS 13:28 Humerus Ordered. EDMS 14:11 Ketamine (1mg/kg - Peds initial dose) 70 mg IVP once ordered. le 14:11 Propofol (PF)(Moderate Sedation, 0.5mg/kg) 35 mg IVP Per protocol; give every 1-2 le minutes until desired level of sedation ordered. 14:11 Call Respiratory ordered. le 14:11 Airway Cart to bedside ordered. le 14:11 Continuous Phlebotomist Lab Assistant and SaO2 with q 5 minute VS during procedure ordered. le 14:11 Initiate continuous wave form capnography monitoring ordered. le 14:11 Oxygen at 4L/Min NC or Home dosage ordered. le 14:45 Call Respiratory complete. deg 14:53 Sling ordered. le 14:54 Shoulder (1 View) Ordered. EDMS 15:14 Propofol (PF)(Moderate Sedation, 0.5mg/kg) 35 mg IVP Per protocol; give every 1-2 le minutes until desired level of sedation ordered. 16:23 Financial registration complete. zo 16:24 Fluid Challenge ordered. le 16:24 Ambulate Patient to Assess Patient Safety ordered. le 16:24 [facility] [place] [facility] Payment Agreement was scanned into [employer] and attached to record. zo 21:16 T-Sheet-- Draft Copy was scanned into [employer] and attached to record. klr 04/13 08:31 [place] Protocol was scanned into [employer] and attached to record. gb 08:31 Consents was scanned into [employer] and attached to record. gb Administered Medications: 04/11 13:38 Drug: Diazepam 2 mg [diazepam 2 mg tablet (1 tabs)] Route: PO; hs1 13:38 Drug: HYDROcodone-acetaminophen 1 tabs [hydrocodone 5 mg-acetaminophen 325 mg tablet (1 hs1 tabs)] Route: PO; 14:47 Drug: Ketamine (1mg/kg - Peds initial dose) 70 mg [ketamine 10 mg/mL injection solution hs1 (7 mL)] Route: IVP; Site: left hand; 15:14 Not Given (Ketamine effective alonee): Propofol (PF)(Moderate Sedation, 0.5mg/kg) 35 mg le IVP Per protocol; give every 1-2 minutes until desired level of sedation Signatures: Dispatcher [employer] EDMS Madeline Benitez, Cartridge Loading Operator Unit deg Teressa Boateng, Reg Reg gb Vitor, Greereann zo Leslie Farrar, AUTOMATIC GLOVE TURNER AND FORMER AUTOMATIC GLOVE TURNER AND FORMER Daniela Christina RN RN hs1 Christie Hernandes RN RN ms18 Chanell Machado The chart was reviewed and I authenticate all verbal orders and agree with the evaluation and treatment provided.Attachments: 16:24 [facility] [place] Payment Agreement zo 21:16 T-Sheet-- Draft Copy klr Chart Complete MTDD
== END 2016-04-11 17:40 | disposition home or self-care (01) ==
LOC: M ED 12:17
DX: S43.004A Unspecified dislocation of right shoulder joint, initial encounter (principal); W18.30XA Fall on same level, unspecified, initial encounter; Y92.410 Unspecified street and highway as the place of occurrence of the external cause; Y93.K1 Activity, walking an animal; Y99.8 Other external cause status; H40.9 Unspecified glaucoma; Z88.0 Allergy status to penicillin

== ENCOUNTER → 2021-03-11 | Outpatient (REF) | payer MEDICARE, OTHER | LOC: M LAB REF 16:29 | PROVIDERS: ATTEND Internal Medicine | DX: R19.7 Diarrhea, unspecified (principal) ==

== ENCOUNTER → 2021-07-15 | Outpatient (REF) | payer MEDICARE, OTHER | LOC: M LAB REF 08:23 | PROVIDERS: ATTEND Internal Medicine | DX: R19.7 Diarrhea, unspecified (principal) ==

== ENCOUNTER → 2021-08-01 | Outpatient (CLI) | payer MEDICARE, BC, OTHER | LOC: M LABSMTC 09:13 | PROVIDERS: ATTEND Anesthesiology | DX: Z01.812 Encounter for preprocedural laboratory examination (principal); Z20.822 Contact with and (suspected) exposure to COVID-19 ==

== ENCOUNTER 2021-08-06 06:37 | Day surgery (SDC) | payer MEDICARE, BC, OTHER ==
[~2021-08-06] VITALS: Ht 165.1 cm; Wt 59.0 kg
[~2021-08-06 06:37] MED LIST: NS 1,000 ML IV ONE
[2021-08-06] MEDS ORDERED: propofoL 200 MG/20 ML VIAL As Ordered ONE (06:50)
[2021-08-06] MEDS ORDERED: LIDOCAINE 2% 100MG/5ML SDV (FOR ANES.) As Ordered ONE (06:50)
[2021-08-06 08:55] VITALS: BP 144/85
== END 2021-08-06 09:16 | disposition home or self-care (01) ==
LOC: M OPP 06:37
PROVIDERS: ATTEND Internal Medicine Gastroenterology
DX: Z12.11 Encounter for screening for malignant neoplasm of colon (principal); K57.30 Diverticulosis of large intestine without perforation or abscess without bleeding; K64.0 First degree hemorrhoids; Z88.0 Allergy status to penicillin; Z91.011 Allergy to milk products; Z91.018 Allergy to other foods

== ENCOUNTER → 2022-04-15 | Outpatient (REF) | payer MEDICARE, BC, OTHER | LOC: M LAB REF 11:29 | PROVIDERS: ATTEND Nurse Practitioner Adult Health | DX: Z11.59 Encounter for screening for other viral diseases (principal) ==

== ENCOUNTER → 2024-05-03 | Outpatient (REF) | payer MEDICARE, BC, OTHER | LOC: M LAB REF 13:05 | PROVIDERS: ATTEND Nurse Practitioner Adult Health | DX: Z11.59 Encounter for screening for other viral diseases (principal) ==